=== PATIENT | female | born 1975 | race Caucasian/White ===

== ENCOUNTER 2019-05-02 18:05 | Emergency (ER) | payer OTHER ==
--- NOTE | 2019-05-02 18:51 | ER Document Report ---
ED Medical Screen (RME) - General Chief Complaint: Fever Stated Complaint: FEVER, CHILLS Time Seen by Provider: 05/02/19 18:45 Primary Care Provider: HUEY ROMERO MD [Primary Care Provider] - Follow up as needed Mode of Arrival: Ambulatory Information source: Patient Notes: 43-year-old female who is breast-feeding presents emergency department with complaints of some soreness to her left breast. She also reports 102 temperature at home. She took ibuprofen at approximately 3:00 this afternoon. She reports she is having chills. Denies vomiting and diarrhea. I have greeted and performed a rapid initial assessment of this patient. A comprehensive ED assessment and evaluation of the patient, analysis of test results and completion of the medical decision making process will be conducted by additional ED providers. TRAVEL OUTSIDE OF THE [place] IN LAST 30 DAYS: No - Related Data Allergies/Adverse Reactions: No Known Allergies Allergy (Unverified 02/15/11 08:49) Past Medical History - Past Medical History Cardiac Medical History: Denies: Hx Coronary Artery Disease, Hx Heart Attack, Hx Hypertension Pulmonary Medical History: Denies: Hx Asthma, Hx Bronchitis, Hx COPD, Hx Pneumonia Neurological Medical History: Denies: Hx Cerebrovascular Accident, Hx Seizures Musculoskeltal Medical History: Denies Hx Arthritis Past Surgical History: Denies: Hx Pacemaker - Immunizations Hx Diphtheria, Pertussis, Tetanus Vaccination: No Physical Exam - Vital signs Vitals: Temp Pulse Resp BP Pulse Ox 99.2 F 116 H 18 136/63 H 97 05/02/19 18:29 05/02/19 18:29 05/02/19 18:29 05/02/19 18:29 05/02/19 18:29 Course - Vital Signs Vital signs: Temp Pulse Resp BP Pulse Ox 99.2 F 116 H 18 136/63 H 97 05/02/19 18:29 05/02/19 18:29 05/02/19 18:29 05/02/19 18:29 05/02/19 18:29 Doctor's Discharge - Discharge Referrals: HUEY ROMERO MD [Primary Care Provider] - Follow up as needed
[2019-05-02 20:22] LABS: HEMATOCRIT 43.2 % (36.0-47.0); HEMOGLOBIN 14.9 g/dL (12.0-15.5); MEAN CORPUSCULAR HEMOGLOBIN 32.3 pg (27.0-33.4); MEAN CORPUSCULAR HGB CONC 34.5 g/dL (32.0-36.0); MEAN CORPUSCULAR VOLUME 94 fl (80-97); PLATELET COUNT 224 10^3/uL (150-450); RED BLOOD COUNT 4.61 10^6/uL (3.72-5.28); RED CELL DISTRIBUTION WIDTH 12.9 % (11.5-14.0); WHITE BLOOD COUNT 21.1 10^3/uL (4.0-10.5)
[2019-05-02 20:24] LABS: APPEARANCE,URINE SLIGHTLY-CLOUDY; BILIRUBIN,URINE NEGATIVE (NEGATIVE); COLOR,URINE YELLOW; GLUCOSE, URINE NEGATIVE (NEGATIVE); KETONES,URINE TRACE mg/dL (NEGATIVE); LEUKOCYTE ESTERASE,URINE SMALL (NEGATIVE); NITRITE,URINE NEGATIVE (NEGATIVE); PROTEIN,URINE 100 mg/dL (NEGATIVE); URINE SPECIFIC GRAVITY 1.026; UROBILINOGEN,URINE NEGATIVE mg/dL (<2.0)
[2019-05-02 20:37] LABS: ALBUMIN 4.1 g/dL (3.5-5.0); ALKALINE PHOSPHATASE 126 U/L (38-126); ANION GAP 12 (5-19); ASPARTATE AMINO TRANSFERASE 25 U/L (14-36); BILIRUBIN,DIRECT 0.1 mg/dL (0.0-0.4); BILIRUBIN,TOTAL 0.6 mg/dL (0.2-1.3); BLOOD UREA NITROGEN 23 mg/dL (7-20); CALCIUM 9.9 mg/dL (8.4-10.2); CARBON DIOXIDE 23 mmol/L (22-30); CHLORIDE 105 mmol/L (98-107); GLUCOSE 94 mg/dL (75-110); POTASSIUM 3.6 mmol/L (3.6-5.0); TOTAL PROTEIN 7.2 g/dL (6.3-8.2)
[2019-05-02 20:39] LABS: A TYPE INFLUENZA AG NEGATIVE (NEGATIVE); B INFLUENZA AG NEGATIVE (NEGATIVE)
[2019-05-02 20:49] LABS: ABSOLUTE LYMPHOCYTES# (MANUAL) 1.7 10^3/uL (0.5-4.7); ABSOLUTE MONOCYTES # (MANUAL) 0.2 10^3/uL (0.1-1.4); BASOPHILS % (MANUAL) 0 % (0-2); EOSINOPHILS % (MANUAL) 0 % (0-6); LYMPHOCYTES % (MANUAL) 8 % (13-45); MONOCYTES % (MANUAL) 1 % (3-13); SEGMENTED NEUTROPHILS % (MAN) 91 % (42-78); TOTAL CELLS COUNTED 100
[2019-05-02 20:50] LABS: TOXIC GRANULATION 1+; TOXIC VACUOLATION PRESENT
[2019-05-02 20:51] LABS: BURR CELLS SLIGHT; PLATELET COMMENT ADEQUATE; POIKILOCYTOSIS SLIGHT; TEAR DROP CELLS SLIGHT
[2019-05-02] MEDS ORDERED: ACETAMINOPHEN 325 MG TABLET PO ONE (20:56)
--- NOTE | 2019-05-02 21:05 | ER Document Report ---
ED Fever - General Chief Complaint: Fever Stated Complaint: FEVER, CHILLS Time Seen by Provider: 05/02/19 18:45 Primary Care Provider: HUEY ROMERO MD [ACTIVE STAFF] - Follow up as needed Mode of Arrival: Ambulatory Notes: Patient is a 43-year-old female who presents to the emergency department with a chief complaint of left breast pain. Patient reports over the past 2 days she is felt very feverish and has had chills. Patient reports she did check her temperature at home earlier today and it was 102. Patient reports she is currently breast-feeding and over the past 24 hours has noticed significant redness and heat to the left breast. Patient reports she does have a history of mastitis and that her symptoms were very similar. Patient reports she has been taking 800 mg ibuprofen which does temporarily help with her discomfort. Patient denies nausea, vomiting or diarrhea. Patient reports she has continued to breast-feed despite having significant pain. Patient did give vaginally to a full-term on April 20. Patient reports no complications. Patient reports that her milk did not come in initially and that she was pumping a lot. TRAVEL OUTSIDE OF THE [place] IN LAST 30 DAYS: No - Related Data Allergies/Adverse Reactions: No Known Allergies Allergy (Unverified 02/15/11 08:49) Home Medications: . [employer] Past Medical History - General Information source: Patient - Social History Smoking Status: Never Smoker Frequency of alcohol use: None Drug Abuse: None Lives with: Family, Spouse/Significant other Family History: None Patient has suicidal ideation: No Patient has homicidal ideation: No - Past Medical History Cardiac Medical History: Reports: None Denies: Hx Coronary Artery Disease, Hx Heart Attack, Hx Hypertension Pulmonary Medical History: Reports: None Denies: Hx Asthma, Hx Bronchitis, Hx COPD, Hx Pneumonia EENT Medical History: Reports: None Neurological Medical History: Reports: None. Denies: Hx Cerebrovascular Accident, Hx Seizures Endocrine Medical History: Reports: None Renal/ Medical History: Reports: None Malignancy Medical History: Reports: None GI Medical History: Reports: None Musculoskeletal Medical History: Reports None, Denies Hx Arthritis Past Surgical History: Denies: Hx Pacemaker - Immunizations Hx Diphtheria, Pertussis, Tetanus Vaccination: No Hx Pneumococcal Vaccination: 05/06/10 Review of Systems - Review of Systems Constitutional: See HPI EENT: No symptoms reported Cardiovascular: No symptoms reported Respiratory: No symptoms reported Gastrointestinal: No symptoms reported Genitourinary: No symptoms reported Female Genitourinary: See HPI Musculoskeletal: No symptoms reported Skin: See HPI Hematologic/Lymphatic: No symptoms reported Neurological/Psychological: No symptoms reported Physical Exam - Vital signs Vitals: Temp Pulse Resp BP Pulse Ox 99.2 F 116 H 18 136/63 H 97 05/02/19 18:29 05/02/19 18:29 05/02/19 18:29 05/02/19 18:29 05/02/19 18:29 Interpretation: Tachycardic - Notes Notes: GENERAL: Well-appearing, well-nourished and in no acute distress. HEAD: Atraumatic, normocephalic. EYES: Pupils equal round and reactive to light, extraocular movements intact, sclera anicteric, conjunctiva are normal. ENT: Nares patent, oropharynx clear without exudates. Moist mucous membranes. NECK: Normal range of motion, supple without lymphadenopathy or JVD. LUNGS: Breath sounds clear to auscultation bilaterally and equal. No wheezes rales or rhonchi. HEART: Regular rate and rhythm without murmurs, rubs or gallops. ABDOMEN: Soft, nontender, normoactive bowel sounds. No guarding, no rebound. No masses appreciated. BACK: No cervical, thoracic, lumbar midline tenderness. No saddle anesthesia, normal distal neurovascular exam. GENITOURINARY: Deferred. EXTREMITIES: Normal range of motion, no pitting or edema. No clubbing or cyanosis. NEUROLOGICAL: Cranial nerves II through XII grossly intact. Normal speech, normal gait. PSYCH: Normal mood, normal affect. SKIN: Warm, Dry, normal turgor, no rashes or lesions noted. Breast examination: Pendulous breasts noted bilaterally. Patient does have erythema noted to the left breast, this is tender and warm to touch. There is no nipple inversion or discharge. Course - Re-evaluation Re-evalutation: 05/02/19 21:17 Upon evaluation patient is resting comfortably on stretcher no acute distress. Patient is nontoxic-appearing. Patient is currently afebrile. Patient symptoms are consistent with a mastitis. Patient does have a leukocytosis of 21. We will treat the patient with oral antibiotics. Patient encouraged to continue breast-feeding with both breast and using warm compresses. Patient reports that she has had mastitis in the past before. I did inform patient to follow-up with her primary care physician next week. - Vital Signs Vital signs: Temp Pulse Resp BP Pulse Ox 99.2 F 116 H 18 136/63 H 97 05/02/19 18:29 05/02/19 18:29 05/02/19 18:29 05/02/19 18:29 05/02/19 18:29 - Laboratory Result Diagrams: 05/02/19 20:01 05/02/19 20:01 Laboratory results interpreted by me: 05/02/19 05/02/19 05/02/19 20:01 20:01 20:01 WBC 21.1 H Seg Neuts % (Manual) 91 H Lymphocytes % (Manual) 8 L Monocytes % (Manual) 1 L Abs Neuts (Manual) 19.2 H BUN 23 H Urine Protein 100 H Urine Ketones TRACE H Urine Blood LARGE H Ur Leukocyte Esterase SMALL H 05/02/19 21:16 Laboratory 05/02/19 05/02/19 05/02/19 20:01 20:01 20:01 WBC 21.1 H RBC 4.61 Hgb 14.9 Hct 43.2 MCV 94 MCH 32.3 MCHC 34.5 RDW 12.9 Plt Count 224 Lymph % (Auto) Not Reportable [place] % (Auto) Not Reportable Eos % (Auto) Not Reportable Baso % (Auto) Not Reportable Absolute Neuts (auto) Not Reportable Absolute Lymphs (auto) Not Reportable Absolute Monos (auto) Not Reportable Absolute Eos (auto) Not Reportable Absolute Basos (auto) Not Reportable Total Counted 100 Seg Neutrophils % Not Reportable Seg Neuts % (Manual) 91 H Lymphocytes % (Manual) 8 L Monocytes % (Manual) 1 L Eosinophils % (Manual) 0 Basophils % (Manual) 0 Abs Neuts (Manual) 19.2 H Abs Lymphs (Manual) 1.7 Abs Monocytes (Manual) 0.2 Absolute Eos (Manual) 0.0 Abs Basophils (Manual) 0.0 Toxic Granulation 1+ Toxic Vacuolation PRESENT Platelet Comment ADEQUATE Poikilocytosis SLIGHT Tear Drop Cells SLIGHT [place] Cells SLIGHT Sodium 139.6 Potassium 3.6 Chloride 105 Carbon Dioxide 23 Anion Gap 12 BUN 23 H Creatinine 0.65 Est GFR ( Amer) > 60 Est GFR (MDRD) Non-Af > 60 Glucose 94 Calcium 9.9 Total Bilirubin 0.6 Direct Bilirubin 0.1 Neonat Total Bilirubin Not Reportable Neonat Direct Bilirubin Not Reportable Neonat Indirect Bili Not Reportable AST 25 ALT 36 Alkaline Phosphatase 126 Total Protein 7.2 Albumin 4.1 Urine Color Urine Appearance Urine pH Ur Specific [place] Urine Protein Urine Glucose (UA) Urine Ketones Urine Blood Urine Nitrite Urine Bilirubin Urine Urobilinogen Ur Leukocyte Esterase Urine WBC (Auto) Urine RBC (Auto) Squamous Epi Cells Auto Urine Mucus (Auto) Urine Ascorbic Acid Influenza A (Rapid) NEGATIVE Influenza B (Rapid) NEGATIVE 05/02/19 20:01 WBC RBC Hgb Hct MCV MCH MCHC RDW Plt Count Lymph % (Auto) [place] % (Auto) Eos % (Auto) Baso % (Auto) Absolute Neuts (auto) Absolute Lymphs (auto) Absolute Monos (auto) Absolute Eos (auto) Absolute Basos (auto) Total Counted Seg Neutrophils % Seg Neuts % (Manual) Lymphocytes % (Manual) Monocytes % (Manual) Eosinophils % (Manual) Basophils % (Manual) Abs Neuts (Manual) Abs Lymphs (Manual) Abs Monocytes (Manual) Absolute Eos (Manual) Abs Basophils (Manual) Toxic Granulation Toxic Vacuolation Platelet Comment Poikilocytosis Tear Drop Cells [place] Cells Sodium Potassium Chloride Carbon Dioxide Anion Gap BUN Creatinine Est GFR ( Amer) Est GFR (MDRD) Non-Af Glucose Calcium Total Bilirubin Direct Bilirubin Neonat Total Bilirubin Neonat Direct Bilirubin Neonat Indirect Bili AST ALT Alkaline Phosphatase Total Protein Albumin Urine Color YELLOW Urine Appearance SLIGHTLY-CLOUDY Urine pH 5.0 Ur Specific [place] 1.026 Urine Protein 100 H Urine Glucose (UA) NEGATIVE Urine Ketones TRACE H Urine Blood LARGE H Urine Nitrite NEGATIVE Urine Bilirubin NEGATIVE Urine Urobilinogen NEGATIVE Ur Leukocyte Esterase SMALL H Urine WBC (Auto) 46 Urine RBC (Auto) >182 Squamous Epi Cells Auto 2 Urine Mucus (Auto) FEW Urine Ascorbic Acid NEGATIVE Influenza A (Rapid) Influenza B (Rapid) Discharge - Discharge Clinical Impression: Chills, Acute mastitis of left breast Condition: Stable Disposition: HOME, SELF-CARE Additional Instructions: *Today was in the emergency department for left breast pain and redness. Your blood work is reassuring and does show an elevation in your white blood cell count which is consistent with your infection. Mastitis is due to the invasion of bacteria through the milk ducts. Continue to use warm compresses, and continue to nurse your infant. You should start to have some significant impro vement within the next 24 to 48 hours. Please return to the emergency department if you develop fever that is not controlled with alternating Tylenol and ibuprofen, increased area of infection which becomes more rapidly swollen and painful or any new or worsening symptoms. *Do not start to feel better after starting antibiotics in the next 2 to 3 days I would seek medical attention for evaluation to rule out abscess. *Alternate Tylenol and ibuprofen as needed for pain and fever. Mastitis (Breast Infection) You have an infection in your breast, called mastitis. This is due to bacteria invading the breast through the milk ducts. Mastitis can be serious, and must be treated carefully. Antibiotics are required. Usually, warm packs are recommended. Some improvement should be evident within 24 to 36 hours. If you're breast-feeding, you should continue to nurse the baby. The baby won't be harmed by the milk from the infected breast. If you stop nursing, the breast must be pumped. If milk builds up in the breast, the infection can dramatically worsen! Follow-up care is important to check for abscess (boil) formation or resistant infection. If you develop fever, chills, or if the area of infection is becoming rapidly more swollen or painful, call the doctor at once. Prescriptions: Cephalexin Monohydrate [Keflex 500 mg Capsule] 500 mg PO Q6H 10 Days #40 capsule Referrals: HUEY ROMERO MD [ACTIVE STAFF] - Follow up as needed
[2019-05-02] MEDS ORDERED: CEPHALEXIN 500 MG CAPSULE PO ONE (21:23)
[2019-05-02] MEDS ORDERED: NORMAL SALINE 1000 ML 1,000 ML IV ONE (22:20)
--- NOTE | 2019-05-02 22:37 | ER Document Report ---
Doctor's Note Notes: 05/02/19 22:36 Patient was found to be tachycardic at time of discharge. Patient's temp is 99.1 orally but patient has been drinking cold fluids. We will give a dose of Tylenol, her first dose of Keflex and initiate IV fluids. Will add on blood cultures due to the leukocytosis and known infection of the left breast. P atient remains nontoxic-appearing. We will continue to closely monitor. 05/03/19 00:14 Patient room remains slightly tachycardic with a heart rate of 116. I did discuss the case with Dr. Mcnamara who recommends giving the patient a second liter of fluids as well as a dose of ibuprofen. Patient is nontoxic-appearing. Did discuss the plan with the patient who denies questions at this time. Nolvia beck vital signs were rechecked and discharged if stable..
[2019-05-03] MEDS ORDERED: NORMAL SALINE 1000 ML 1,000 ML IV ONE (00:13)
[2019-05-03] MEDS ORDERED: IBUPROFEN 800 MG TABLET PO ONE (00:13)
[2019-05-03 00:56] VITALS: BP 96/58
== END 2019-05-03 01:08 | disposition home or self-care (01) ==
LOC: ER 18:05
DX: N61.0 Mastitis without abscess (principal); R50.9 Fever, unspecified; N64.4 Mastodynia
CPT/HCPCS: 99283; 96360; 96361; 36415; 87040; 87086; 85025; 80053; 81001; 87804; J7030 ×2